=== PATIENT | female | born 1985 | race Caucasian/White ===

== ENCOUNTER 2019-02-16 08:10 | Day surgery (SDC) | payer OTHER ==
[~2019-02-16] VITALS: Ht 167.6 cm; Wt 188.0 kg
[2019-02-16] MEDS ORDERED: MYRBETR50MG PO (08:52)
[2019-02-16] MEDS ORDERED: PRENATAL VITAMI1 TA3 PO (08:52)
[2019-02-16] MEDS ORDERED: PROBIOTIC ACID1 EAC3 PO (08:53)
[2019-02-16 09:08] VITALS: BP 123/67; PULSE 66; TEMP 97.4
[2019-02-16] MEDS ORDERED: NORCO 325 MG-51 TAB PO (13:05)
[2019-02-16 13:35] VITALS: BP 117/65; PULSE 62; TEMP 97
--- NOTE | 2019-02-16 13:35 | NUR ---
Patient arrives back to [facility] alert, denies nausea, reports dull ache pain at incision sites. Bandaid x3 clean/dry/intact. Patient monitor applied, vitals stable. Patient's spouse brought to bedside.
--- NOTE | 2019-02-16 13:40 | NUR ---
Patient given water and muffin at this time.
[2019-02-16 13:50] VITALS: BP 110/60; PULSE 64
--- NOTE | 2019-02-16 14:00 | NUR ---
Patient resting comfortably. PRN Pain medication/pill given to for dull ache/pain at incision sites. Vitals stable.
[2019-02-16 14:05] VITALS: BP 114/67; PULSE 57
[2019-02-16 14:20] VITALS: BP 118/68; PULSE 5
--- NOTE | 2019-02-16 14:25 | NUR ---
Patient education and dismissal instructions gone over with patient and patient's spouse at this time. Both verbalize understanding and all questions answered.
--- NOTE | 2019-02-16 14:35 | NUR ---
Patient discharged to home via wheelchair to private vehicle spouse is driving. Patient and spouse leave thanking staff for services.
== END 2019-02-16 14:35 | disposition home or self-care (01) ==
LOC: SDCO 08:10
DX: K42.9 Umbilical hernia without obstruction or gangrene (principal); K43.9 Ventral hernia without obstruction or gangrene; Z79.899 Other long term (current) drug therapy; Z79.891 Long term (current) use of opiate analgesic; Z82.49 Family history of ischemic heart disease and other diseases of the circulatory system; Z80.1 Family history of malignant neoplasm of trachea, bronchus and lung; Z80.0 Family history of malignant neoplasm of digestive organs; Z82.61 Family history of arthritis; Z82.3 Family history of stroke; Z81.8 Family history of other mental and behavioral disorders
CPT/HCPCS: C1781; J0330; J1100; J1885; J2250; J2405; J2704; J2710; J3010; J7120